=== PATIENT | female | born 1960 | race Two or more races ===

== ENCOUNTER 2024-07-04 05:39 | Emergency (ER) | payer MEDICAID, OTHER ==
[~2024-07-04] VITALS: Ht 162.6 cm; Wt 86.0 kg
[2024-07-04 06:00] VITALS: BP 110/63; PULSE 83; RESP 13; TEMP 97.7; O2SAT 96
== END 2024-07-04 08:19 | disposition left against medical advice (07) ==
LOC: ER 05:39
DX: R06.02 Shortness of breath (principal); Z53.21 Procedure and treatment not carried out due to patient leaving prior to being seen by health care provider